=== PATIENT | female | born 1960 | race African-American/Black ===

== ENCOUNTER 2025-02-24 06:05 | Day surgery (SDC) | payer OTHER ==
[2025-02-17 14:02] VITALS: BMI 19.3
[2025-02-24 06:39] VITALS: RESP 16
[2025-02-24] MEDS ORDERED: LIDOCAINE HCL 2% 100 MG/5 ML DISP.SYRIN ONE (06:57)
[2025-02-24] MEDS ORDERED: MIDAZOLAM HCL 2 MG/2 ML SINGLE DOSE VIAL ONE (06:58)
[2025-02-24] MEDS ORDERED: PROPOFOL 20 ML ONE (06:58)
[2025-02-24] MEDS ORDERED: DEXAMETHASONE SOD PHOSPHATE 10 MG/1 ML VIAL ONE (07:04)
[2025-02-24] MEDS ORDERED: ROPIVACAINE HCL 0.5% 30ML VIAL ONE (07:04)
[2025-02-24] MEDS ORDERED: BUPIVACAINE HCL/EPINEPHRINE/PF 30 ML VIAL IJ ONE (07:12)
[2025-02-24] MEDS ORDERED: SUCCINYLCHOLINE CHLORIDE 200 MG/10 ML SYRINGE ONE (07:58)
[2025-02-24] MEDS ORDERED: GLYCOPYRROLATE 0.2 MG/1 ML VIAL ONE (08:11)
[2025-02-24] MEDS: BUPIVACAINE HCL/EPINEPHRINE/PF 30 ML VIAL IJ ONE (08:11)
[2025-02-24] MEDS ORDERED: ePHEDrine SULFATE 50 MG/1 ML AMPULE ONE (08:22)
[2025-02-24] MEDS ORDERED: PROMETHAZINE HCL 25 MG/1 ML VIAL IVPB PRN (08:37)
[2025-02-24] MEDS ORDERED: oxyCODONE HCL 5 MG TABLET PO PRN (08:37)
[2025-02-24] MEDS ORDERED: FENTANYL CITRATE/PF 50 MCG/ML VIAL IVPUSH PRN ×2 (08:37)
[2025-02-24] MEDS ORDERED: ONDANSETRON 4 MG/2 ML VIAL IVPUSH PRN (08:37)
[2025-02-24] MEDS ORDERED: ACETAMINOPHEN INJECTION 100 ML ONE (08:38)
[2025-02-24] MEDS ORDERED: LACTATED RINGERS SOLUTION 1,000 ML IV SCH (08:45)
[2025-02-24] MEDS: ONDANSETRON 4 MG/2 ML VIAL ONE (11:10)
[2025-02-24 11:59] VITALS: TEMP 97.2
[2025-02-24 12:28] VITALS: BP 106/62; PULSE 62
== END 2025-02-24 12:40 | disposition home or self-care (01) ==
LOC: FASU 06:05
PROVIDERS: ATTEND Orthopaedic Surgery
PROC: 0RNJ4ZZ Release Right Shoulder Joint, Percutaneous Endoscopic Approach (ICD-10-PCS; principal; 2025-02-24 08:12)
PROC: 0LM14ZZ Reattachment of Right Shoulder Tendon, Percutaneous Endoscopic Approach (ICD-10-PCS; 2025-02-24 08:12)
PROC: 0LS34ZZ Reposition Right Upper Arm Tendon, Percutaneous Endoscopic Approach (ICD-10-PCS; 2025-02-24 08:12)
PROC: 0RHJ44Z Insertion of Internal Fixation Device into Right Shoulder Joint, Percutaneous Endoscopic Approach (ICD-10-PCS; 2025-02-24 08:12)
DX: S46.011D Strain of muscle(s) and tendon(s) of the rotator cuff of right shoulder, subsequent encounter (principal); S43.431D Superior glenoid labrum lesion of right shoulder, subsequent encounter; M75.21 Bicipital tendinitis, right shoulder; M75.51 Bursitis of right shoulder; M19.011 Primary osteoarthritis, right shoulder; M65.811 Other synovitis and tenosynovitis, right shoulder; X58.XXXD Exposure to other specified factors, subsequent encounter; Y92.9 Unspecified place or not applicable; Y93.9 Activity, unspecified
CPT/HCPCS: 29823; 29824; 29826; 29827; 29828; C1713; 88304-TC; 94760; J1100